=== PATIENT | female | born 1975 | race Caucasian/White ===

== ENCOUNTER 2016-10-17 15:57 | Emergency (ER) | payer OTHER ==
[2016-10-17 16:05] VITALS: TEMP 100.9
[2016-10-17] MEDS ORDERED: ACETAMINOPHEN 325 MG TAB ONE (16:07)
[2016-10-17] MEDS ORDERED: ACETAMINOPHEN 325 MG TAB PO ONE (16:10)
--- NOTE | 2016-10-17 16:36 | EDPHY ---
H & P Chief Complaint Nursing Narrative: cough, head and chest congestion, fever x 4 days Time Seen by Provider: 10/17/16 16:31 HPI/ROS: CHIEF COMPLAINT: Congestion, fever HISTORY OF PRESENT ILLNESS: Patient is a 40-year-old female who comes to the Urgent Care complaining of sinus congestion, fever and cough productive of yellow mucus. She has had the symptoms since last . No sore throat. No headache. No neck pain. she complains of sinus tenderness, no of dental pain. REVIEW OF SYSTEMS: Constitutional: denies: chills, fever, recent illness, recent injury EENTM: See HPI Respiratory: See HPI Cardiac: denies: chest pain, irregular heart rate, lightheadedness, palpitations Gastrointestinal/Abdominal: denies: abdominal pain, diarrhea, nausea, vomiting, blood streaked stools Genitourinary: denies: dysuria, frequency, hematuria, pain Musculoskeletal: denies: joint pain, muscle pain Skin: denies: lesions, rash, jaundice, bruising Neurological: denies: headache, numbness, paresthesia, tingling, dizziness, weakness Hematologic/Lymphatic: denies: blood clots, easy bleeding, easy bruising Immunologic/allergic: denies: HIV/AIDS, transplant EXAM: GENERAL: Well-appearing, well-nourished and in no acute distress. HEAD: Atraumatic, normocephalic. EYES: Pupils equal round and reactive to light, extraocular movements intact, sclera anicteric, conjunctiva are normal. ENT: Purulent effusions behind both tympanic membranes, oropharynx clear, no erythema, sinus tenderness to palpation. NECK: Normal range of motion, supple without lymphadenopathy or JVD. LUNGS: Breath sounds clear to auscultation bilaterally and equal. No wheezes rales or rhonchi. HEART: Regular rate and rhythm without murmurs, rubs or gallops. ABDOMEN: Soft, nontender, normoactive bowel sounds. No guarding, no rebound. No masses appreciated. BACK: No CVA tenderness, no spinal tenderness, step-offs or deformities EXTREMITIES: Normal range of motion, no pitting or edema. No clubbing or cyanosis. NEUROLOGICAL: Cranial nerves II through XII grossly intact. Normal speech, normal gait. 5/5 strength, normal movement in all extremities, normal sensation PSYCH: Normal mood, normal affect. SKIN: Warm, dry, normal turgor, no visible rashes or lesions. Source: Patient Exam Limitations: No limitations - Personal History LMP (Females 10-55): Extended Cycle BCP/Inj Tetanus Vaccine Date: Fall 2011 - Medical/Surgical History Hx Asthma: No Hx Chronic Respiratory Disease: No Hx Diabetes: No Hx Cardiac Disease: No Hx Renal Disease: No Hx Cirrhosis: No Hx Alcoholism: No Hx HIV/AIDS: No Hx Splenectomy or Spleen Trauma: No Other PMH: PE, bipolar disorder, undifferentiated connective disorder, factor 5 Leiden deficiency - Family History Significant Family History: No pertinent family hx - Social History Smoking Status: Never smoked Alcohol Use: Sober Drug Use: None Constitutional: Initial Vital Signs Temperature (C) 38.3 C 10/17/16 16:01 Heart Rate 89 10/17/16 16:01 Respiratory Rate 18 10/17/16 16:01 Blood Pressure 115/72 10/17/16 16:01 O2 Sat (%) 94 10/17/16 16:01 O2 Delivery Mode Room Air Allergies/Adverse Reactions: carbamazepine Allergy (Verified 11/03/14 19:40) hydromorphone HCl [From Dilaudid] Allergy (Verified 11/03/14 19:40) morphine Allergy (Verified 11/03/14 19:40) Home Medications: Medication Instructions Recorded Escitalopram Oxalate [Lexapro] 07/30/13 QUETIAPINE FUMARATE [SEROQUEL] 07/30/13 Levonorgestrel [MIRENA] 09/09/13 Pramipexole Di-HCl [Mirapex 0.125 09/09/13 mg (RX)] GABAPENTIN 10/17/16 Methotrexate 10/17/16 Plaquenil 200 mg (*) 10/17/16 Promethazine HCl/Codeine 5 ml PO Q4-6PRN PRN #90 ml 10/17/16 [Prometh-Codein 6.25-10 mg/5 ml] Medical Decision Making - Diagnostics EKG Interpretation: An EKG obtained and was read and documented in trace view. Please see trace view for full reading and report. Sinus rhythm, no sign of cardiomegaly, no diminished QRS, no ST elevation or signs of right heart strain. Imaging Results: Imaging Impressions Chest X-Ray 10/17/16 16:35 Impression: Progressive cardiac enlargement associated with pulmonary vascular congestion and prominence of the vascular pedicle, exclude cardiogenic etiology. Exam results discussed with Dr. Patrice Jean at 4:50 PM.. Chest/Thorax CTA 10/17/16 18:01 Impression: 1. No evidence of pulmonary embolic disease. 2. Borderline cardiac enlargement, with no secondary findings to suggest congestive heart failure. 3. See above report for additional findings. Results called and discussed with Patrice Jean M.D., on October 17, 2016 at 1846 hours. Imaging: Discussed imaging studies w/ call manager Radiologist ED Course/Re-evaluation: The patient is flu positive. This is most likely the cause of her symptoms however she has an enlarged heart and cardiovascular congestion on her chest x- ray. She does have a history of PE but denies any pleuritic chest pain or chest pain at all today. She states that it was provoked At that time by a mild factor 5 Leiden deficiency as well as a recent back injury and the fact that she was on control pills. She is not hypoxic. She finished it taking anticoagulants 2011. 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 She states that her dad did have a bicuspid aortic valve. She reports history of murmur although I do not hear one today. She does report progressive dyspnea over the last year even with very mild exertion. She also states that she always has mild edema in her lower extremities. The 5:25 p.m. I discussed the case with Dr. Annie Turner from Cardiology. She agrees with adding on troponin and D-dimer and EKG. If these are unremarkable treat the patient for the flu a and follow up in the Cardiology Clinic for further workup for her more chronic and mild dyspnea on exertion and cardiomegaly seen on chest x-ray. This is unlikely to represent an acute emergent valvular abnormality or myocarditis or pericardial effusion any of any significance if her lab work and EKG are unremarkable. 6:[address] we discussed the CT results. Patient and are relieved. I will treat her cough syrup she requests. We discussed the positives and negatives of Tamiflu. Will not start her at this time. She has been sick for 4 -5 days. I will have her follow up with Cardiology for further cardiac testing in the outpatient setting. We discussed indications for returning to the emergency department sooner. Differential Diagnosis: Partial list of the Differential diagnosis considered include but were not limited to; influenza, sinusitis, bronchitis, pneumonia, upper respiratory tract infection, valvular disease, pericardial effusion, PE, pulmonary hypertension and although unlikely based on the history and physical exam, I also considered PE, heart failure, acute coronary disease. I discussed these differential diagnoses and the plan with the patient as well as the usual and expected course. The patient understands that the diagnosis is provisional and that in medicine we are not always correct and that further workup is often warranted. Usual and customary warnings were given. All of the patient's questions were answered. The patient was instructed to return to the emergency department should the symptoms at all worsen or return, otherwise to followup with the physician as we discussed. - Data Points Laboratory Results: Laboratory Results 10/17/16 17:21 10/17/16 17:21 10/17/16 10/17/16 10/17/16 17:21 17:21 17:21 WBC RBC Hgb Hct MCV MCH MCHC RDW Plt Count MPV Neut % (Auto) Lymph % (Auto) Charlton % (Auto) Eos % (Auto) Baso % (Auto) Nucleat RBC Rel Count Absolute Neuts (auto) Absolute Lymphs (auto) Absolute Monos (auto) Absolute Eos (auto) Absolute Basos (auto) Absolute Nucleated RBC Immature Gran % Immature Gran # PT 13.1 SEC SEC (12.0-15.0) INR 1.02 (0.83-1.16) APTT 25.2 SEC SEC (23.0-38.0) D-Dimer 0.81 ug/mLFEU H ug/mLFEU (0.00-0.50) Sodium 136 mEq/L mEq/L (134-144) Potassium 3.9 mEq/L mEq/L (3.5-5.2) Chloride 100 mEq/L mEq/L (97-110) Carbon Dioxide 22 mEq/l mEq/l (22-31) Anion Gap 14 mEq/L mEq/L (8-16) BUN 12 mg/dL mg/dL (7-23) Creatinine 0.8 mg/dL mg/dL (0.6-1.0) Estimated GFR > 60 Glucose 94 mg/dL mg/dL (70-100) Calcium 8.3 mg/dL L mg/dL (8.5-10.4) Troponin I < 0.012 ng/mL ng/mL (0-0.034) NT-Pro-B Natriuret Pep 49 pg/mL pg/mL (0-125) Beta HCG, Qual NEGATIVE Influenza Typ A,B (DFA) 10/17/16 10/17/16 17:21 16:42 WBC 4.43 10^3/uL 10^3/uL (3.80-9.50) RBC 3.89 10^6/uL L 10^6/uL (4.18-5.33) Hgb 13.0 g/dL g/dL (12.6-16.3) Hct 35.9 % L % (38.0-47.0) MCV 92.3 fL fL (81.5-99.8) MCH 33.4 pg pg (27.9-34.1) MCHC 36.2 g/dL g/dL (32.4-36.7) RDW 12.8 % % (11.5-15.2) Plt Count 163 10^3/uL 10^3/uL (150-400) MPV 9.3 fL fL (8.7-11.7) Neut % (Auto) 70.5 % % (39.3-74.2) Lymph % (Auto) 17.6 % % (15.0-45.0) Charlton % (Auto) 10.4 % % (4.5-13.0) Eos % (Auto) 1.1 % % (0.6-7.6) Baso % (Auto) 0.2 % L % (0.3-1.7) Nucleat RBC Rel Count 0.0 % % (0.0-0.2) Absolute Neuts (auto) 3.12 10^3/uL 10^3/uL (1.70-6.50) Absolute Lymphs (auto) 0.78 10^3/uL L 10^3/uL (1.00-3.00) Absolute Monos (auto) 0.46 10^3/uL 10^3/uL (0.30-0.80) Absolute Eos (auto) 0.05 10^3/uL 10^3/uL (0.03-0.40) Absolute Basos (auto) 0.01 10^3/uL L 10^3/uL (0.02-0.10) Absolute Nucleated RBC 0.00 10^3/uL 10^3/uL (0-0.01) Immature Gran % 0.2 % % (0.0-1.1) Immature Gran # 0.01 10^3/uL 10^3/uL (0.00-0.10) PT INR APTT D-Dimer Sodium Potassium Chloride Carbon Dioxide Anion Gap BUN Creatinine Estimated GFR Glucose Calcium Troponin I NT-Pro-B Natriuret Pep Beta HCG, Qual Influenza Typ A,B (DFA) POSITIVE FOR FLU B H (NEGATIVE) Medications Given: Discontinued Medications Acetaminophen (Tylenol) 975 mg PO EDNOW ONE Stop: 10/17/16 16:11 Last Admin: 10/17/16 16:10 Dose: 975 mg Departure - Departure Disposition: Home, Routine, Self-Care Clinical Impression: Influenza B Condition: Fair Instructions: Influenza Vaccine (ED) Referrals: Johnie Menjivar MD [Primary Care Provider] - As per Instructions Prescriptions: Promethazine HCl/Codeine [Prometh-Codein 6.25-10 mg/5 ml] 5 ml PO Q4-6PRN PRN # 90 ml PRN Reason: Cough, Moderate
--- NOTE | 2016-10-17 17:16 | CPEKG ---
Heart Rate: 83 RR Interval: 723 P-R Interval: 128 QRSD Interval: 94 QT Interval: 384 QTC Interval: 452 P Alva: 15 QRS Alva: 48 T Wave Alva: 35 EKG Severity - NORMAL ECG - EKG Impression: SINUS RHYTHM EKG Impression: Unchanged from previous Electronically Signed By: Patrice Jean 17-Oct-2016 17:27:59
[2016-10-17 17:29] LABS: % IMMATURE GRANULYOCYTES 0.2 % (0.0-1.1); ABSOLUTE IMMATURE GRANULOCYTES 0.01 10^3/uL (0.00-0.10); ADD DIFF? NO; ADD MORPH? NO; ADD SCAN? NO; ATYPICAL LYMPHOCYTE FLAG 30 (0-99); FRAGMENT RBC FLAG 0 (0-99); HEMATOCRIT 35.9 % (38.0-47.0); LEFT SHIFT FLG 0 (0-99); LIPEMIA HEMOLYSIS FLAG 90 (0-99); MEAN CELL HEMOGLOBIN 33.4 pg (27.9-34.1); MEAN CELL HEMOGLOBIN CONCENTR. 36.2 g/dL (32.4-36.7); MEAN CELL VOLUME 92.3 fL (81.5-99.8); MEAN PLATELET VOLUME 9.3 fL (8.7-11.7); PLATELET CLUMPS FLAG 0 (0-99); PLATELET COUNT 163 10^3/uL (150-400); RED BLOOD CELL COUNT 3.89 10^6/uL (4.18-5.33); RED CELL DISTRIBUTION WIDTH 12.8 % (11.5-15.2)
[2016-10-17 17:43] LABS: ANION GAP 14 mEq/L (8-16); CALCIUM 8.3 mg/dL (8.5-10.4); CARBON DIOXIDE 22 mEq/l (22-31); CHLORIDE 100 mEq/L (97-110); CREATININE 0.8 mg/dL (0.6-1.0); GLOMERULAR FILTRATION RATE > 60; GLUCOSE 94 mg/dL (70-100); POTASSIUM 3.9 mEq/L (3.5-5.2); SODIUM 136 mEq/L (134-144)
[2016-10-17 17:52] LABS: INR 1.02 (0.83-1.16); PROTIME(PATIENT) 13.1 SEC (12.0-15.0)
[2016-10-17 17:53] LABS: APTT 25.2 SEC (23.0-38.0)
[2016-10-17 17:56] LABS: TROPONIN I < 0.012 ng/mL (0-0.034)
[2016-10-17] MEDS ORDERED: IOPAMIDOL (ISOVUE 370) 100 ML BTL IV ONE (18:09)
[2016-10-17 19:37] VITALS: BP 101/72; PULSE 80; RESP 14; O2SAT 96
== END 2016-10-17 19:10 | disposition home or self-care (01) ==
LOC: CED 15:57
DX: J10.1 Influenza due to other identified influenza virus with other respiratory manifestations (principal); D68.2 Hereditary deficiency of other clotting factors; Z86.711 Personal history of pulmonary embolism
CPT/HCPCS: 71020-PO; 71275-PO; 80048-PO; 83880-PO; 84484-PO; 84703-PO; 85025-PO; 85378-PO; 85610-PO; 85730-PO; 87400-PO; 93010-PO; 99215-PO; G0463-PO; Q9967

== ENCOUNTER → 2016-11-07 | Outpatient (CLI) | payer OTHER | LOC: FIMAGING 12:59 | PROVIDERS: ATTEND Physician Assistant Medical | DX: R60.9 Edema, unspecified (principal); R07.9 Chest pain, unspecified; I42.9 Cardiomyopathy, unspecified ==

== ENCOUNTER → 2016-11-16 | Outpatient (CLI) | payer OTHER | LOC: FIMAGING 11:06 | PROVIDERS: ATTEND Physician Assistant | DX: R05 Cough (principal) ==

== ENCOUNTER 2016-11-30 09:42 | Day surgery (SDC) | payer OTHER ==
[2016-11-30] MEDS ORDERED: diphenhydrAMINE 25 MG CAP PO ONE ×2 (09:44→10:00)
[2016-11-30] MEDS ORDERED: DIAZEPAM 5 MG TAB PO ONE (09:44)
[2016-11-30] MEDS ORDERED: FAMOTIDINE 20 MG TAB PO ONE (09:44)
[2016-11-30] MEDS ORDERED: NS 1,000 ML IV ONE (09:44)
[2016-11-30] MEDS ORDERED: LIDOCAINE 1% 300 MG/30 ML SDV ONE ×2 (09:44→13:43)
[2016-11-30] MEDS ORDERED: ASPIRIN EC 325 MG TAB PO ONE ×2 (09:44→10:01)
[2016-11-30] MEDS ORDERED: MIDAZOLAM 2 MG/2 ML VIAL ONE ×3 (09:45→13:52)
[2016-11-30] MEDS ORDERED: VERAPAMIL 5 MG/2 ML VIAL ONE (09:45)
[2016-11-30] MEDS ORDERED: HEPARIN 10,000 UNIT/10 ML MDV ONE (09:45)
[2016-11-30] MEDS ORDERED: fentaNYL 100 MCG/2 ML INJ ONE ×2 (09:45→13:39)
[2016-11-30] MEDS ORDERED: IOPAMIDOL (ISOVUE-370) 150 ML BTL IV ONE (09:45)
--- NOTE | 2016-11-30 09:58 | CPEKG ---
Heart Rate: 80 RR Interval: 750 P-R Interval: 136 QRSD Interval: 100 QT Interval: 404 QTC Interval: 466 P [place]: 50 QRS [place]: 65 T Wave [place]: 25 EKG Severity - BORDERLINE ECG - EKG Impression: SINUS RHYTHM EKG Impression: BORDERLINE T WAVE ABNORMALITIES Electronically Signed By: Husam Sheppard 30-Nov-2016 10:22:34
[2016-11-30] MEDS ORDERED: DIAZEPAM 5 MG TAB ONE (10:01)
[2016-11-30] MEDS ORDERED: FAMOTIDINE 20 MG TAB ONE (10:01)
[2016-11-30 10:19] LABS: % IMMATURE GRANULYOCYTES 0.3 % (0.0-1.1); ABSOLUTE IMMATURE GRANULOCYTES 0.01 10^3/uL (0.00-0.10); ADD DIFF? NO; ADD MORPH? NO; ADD SCAN? NO; ATYPICAL LYMPHOCYTE FLAG 30 (0-99); FRAGMENT RBC FLAG 0 (0-99); HEMATOCRIT 37.7 % (38.0-47.0); LEFT SHIFT FLG 0 (0-99); LIPEMIA HEMOLYSIS FLAG 90 (0-99); MEAN CELL HEMOGLOBIN 32.5 pg (27.9-34.1); MEAN CELL HEMOGLOBIN CONCENTR. 34.5 g/dL (32.4-36.7); MEAN CELL VOLUME 94.3 fL (81.5-99.8); MEAN PLATELET VOLUME 9.2 fL (8.7-11.7); PLATELET CLUMPS FLAG 0 (0-99); PLATELET COUNT 199 10^3/uL (150-400)
[2016-11-30 10:29] LABS: ANION GAP 10 mEq/L (8-16); CALCIUM 8.8 mg/dL (8.5-10.4); CARBON DIOXIDE 25 mEq/l (22-31); CHLORIDE 105 mEq/L (97-110); CHOLESTEROL 161 mg/dL (140-200); CHOLESTEROL/HDL RATIO 2.88 RATIO (1.00-4.44); CREATININE 0.9 mg/dL (0.6-1.0); GLOMERULAR FILTRATION RATE > 60; GLUCOSE 90 mg/dL (70-100); HIGH DENSITY LIPOPROTEIN 56 mg/dL (40-95); LDL/HDL RATIO 1.54 RATIO (1.00-3.22); LOW DENSITY LIPOPROTEIN 86 mg/dL (70-100); MAGNESIUM 2.3 mg/dL (1.6-2.3); NON-HIGH DENSITY LIPOPROTEIN 105 mg/dL (90-129); POTASSIUM 3.7 mEq/L (3.5-5.2); SODIUM 140 mEq/L (134-144); TRIGLYCERIDE 99 mg/dL (35-135); VERY LOW DENSITY LIPOPROTEINS 19 mg/dL (8-25)
[2016-11-30 10:32] LABS: INR 1.04 (0.83-1.16); PROTIME(PATIENT) 13.5 SEC (12.0-15.0)
--- NOTE | 2016-11-30 15:04 | PDDXCAT ---
Diagnostic Cath Note - . Date: 11/30/16 Data Warehousing Architect: Jerome Indication: other (Dyspnea, LE edema, and abnormal ETT.) - Procedure Access: right groin Procedure: left heart catheterization, coronary angiography, left ventriculogram , right heart catheterization - Materials Left Heart Cath size: 6F Left Heart Cath materials: standard multipack (JL4, JR4, pigtail) Right Heart Cath size: 7F Right Heart Cath materials: PWP catheter - Findings-Left Heart Catheterization LM: Angiographically normal. LAD: Angiographically normal. LCX: Angiographically normal. RCA: Angiographically normal. EDP: 26 mmHg LVEF: 65% Wall motion: Normal. - Findings-Right Heart Catheterization RA: 14 mmHg RV: 38/18 mmhg PA: 38/20/26 mmHg O2 sat 77.8% PAOP: 18 mmHg AO: 107/63/77 mmHg O2 sat 96.1% CO: 7.66 L/min CI: 3.86 L/min/sq mtr Complications: None Estimated blood loss: <50ml Closure method: Angioseal Assessment: 1) Normal LV systolic function. 2) Normal coronary arteries. 3) Borderline RV and PA systolic pressures. 4) Mild elevation/equalization of RA, RVEDP, PCWP, and LVEDP. Patient Problems: Problems Problem Status Onset Drowsy Active Low back pain Acute
[2016-11-30] MEDS ORDERED: ATROPINE SULFATE 1 MG/10 ML SYR IVP PRN (15:43)
[2016-11-30] MEDS ORDERED: HYDROCODONE/APAP 5/325 TAB PO PRN (15:43)
[2016-11-30] MEDS ORDERED: OXYCODONE/APAP 5/325 TAB PO PRN (15:43)
[2016-11-30] MEDS ORDERED: ONDANSETRON 4 MG/2 ML VIAL IVP PRN (15:43)
[2016-11-30] MEDS ORDERED: NITROGLYCERIN 0.4 MG BTL SL PRN (15:43)
[2016-11-30] MEDS ORDERED: ACETAMINOPHEN 325 MG TAB PO ONE (16:15)
[2016-11-30 18:58] VITALS: BP 101/55; RESP 17; O2SAT 94
== END 2016-11-30 19:00 | disposition home or self-care (01) ==
LOC: FCATH 09:42
PROVIDERS: ATTEND Internal Medicine Interventional Cardiology
PROC: B2111ZZ Fluoroscopy of Multiple Coronary Arteries using Low Osmolar Contrast (ICD-10-PCS; principal; 2016-11-30)
PROC: 4A023N8 Measurement of Cardiac Sampling and Pressure, Bilateral, Percutaneous Approach (ICD-10-PCS; principal; 2016-11-30)
PROC: B2151ZZ Fluoroscopy of Left Heart using Low Osmolar Contrast (ICD-10-PCS; principal; 2016-11-30)
DX: R07.9 Chest pain, unspecified (principal); R06.09 Other forms of dyspnea; Z86.711 Personal history of pulmonary embolism; F31.9 Bipolar disorder, unspecified; L94.9 Localized connective tissue disorder, unspecified; G62.9 Polyneuropathy, unspecified
CPT/HCPCS: C1760; J1644; J2250; J3010; Q9967

== ENCOUNTER → 2016-12-08 | Outpatient (CLI) | payer OTHER | LOC: FIMAGING 17:08 | PROVIDERS: ATTEND Internal Medicine Cardiovascular Disease | DX: R07.9 Chest pain, unspecified (principal); R10.30 Lower abdominal pain, unspecified; S30.1XXA Contusion of abdominal wall, initial encounter ==

== ENCOUNTER 2017-04-15 19:09 | Emergency (ER) | payer OTHER ==
--- NOTE | 2017-04-15 20:41 | EDPHY ---
H & P Time Seen by Provider: 04/15/17 19:28 HPI/ROS: CHIEF COMPLAINT: Left rib and right arm pain after fall HISTORY OF PRESENT ILLNESS: 41-year-old female presents to the emergency department by private vehicle after she fell out of her make shift [place] at home. She does not think that she hit her head or lost consciousness. Denies neck or back pain. Having pain in her left anterior rib and right arm. The incident happened just prior to arrival. No abdominal pain. No chest pain or difficulty breathing. No injury to her lower extremities. She is right-hand dominant. REVIEW OF SYSTEMS: Constitutional: No fever, no chills. Eyes: No double or blurry vision. ENT: No sore throat. Respiratory: No cough, no shortness of breath. Cardiac: No chest pain. Gastrointestinal: No abdominal pain, vomiting or diarrhea. Genitourinary: No dysuria. Musculoskeletal: No neck or back pain. Skin: No rashes. Neurological: No headache. Past Medical/Surgical History: Bipolar, factor 5 Leiden Social History: , works in [employer] Smoking Status: Never smoked Physical Exam: General Appearance: Alert, no distress. No visible signs of trauma to her head. She is mentating normally and answering questions appropriately. Eyes: Pupils equal and round. Extraocular motions are all intact. ENT: Mouth: Mucous membranes moist. Respiratory: No wheezing, rhonchi, or rales, lungs are clear to auscultation. Patient has reproducible pain with palpation to the left anterior aspect of her chest wall in the midclavicular line extend into the mid axillary line at the level of the 8th or 9th rib area. No palpable crepitus or other bony abnormality. No palpable crepitus or other bony abnormality. Cardiovascular: Regular rate and rhythm. Gastrointestinal: Abdomen is soft and nontender, no masses, no rebound or guarding, bowel sounds normal. Specifically no tenderness with palpation in the left upper quadrant. No CVA tenderness bilaterally. Neurological: Alert and oriented x 3, cranial nerves II through XII grossly intact Skin: Warm and dry, no rashes. Musculoskeletal: Nontender to palpate along the cervical, thoracic or lumbar spine. Neck is supple. Extremities: Full range of motion and no peripheral edema. Pain with palpation to the left humerus. There is no bruising or swelling noted. Full range of motion of her left in her right upper extremities as well as her lower extremities bilaterally. Psychiatric: Patient is oriented X 3, there is no agitation. Constitutional: Initial Vital Signs Temperature (C) 36.5 C 04/15/17 19:10 Heart Rate 85 04/15/17 19:10 Respiratory Rate 18 04/15/17 19:10 Blood Pressure 120/79 04/15/17 19:10 O2 Sat (%) 97 04/15/17 19:10 O2 Delivery Mode Room Air Allergies/Adverse Reactions: carbamazepine Allergy (Verified 11/03/14 19:40) hydromorphone HCl [From Dilaudid] Allergy (Verified 11/03/14 19:40) morphine Allergy (Verified 11/03/14 19:40) Home Medications: Medication Instructions Recorded Levonorgestrel [MIRENA] 1 each VG [id number] 09/09/13 Gabapentin [Neurontin 400 MG (*)] 800 mg PO HS 10/17/16 Hydroxychloroquine Sulfate 200 mg PO BID 10/17/16 [Plaquenil 200 mg (*)] Methotrexate Sodium [Rheumatrex] 15 mg PO TH 10/17/16 Cyanocobalamin [Vitamin B12 (*)] 1,000 mcg PO DAILY 11/30/16 Escitalopram Oxalate [Lexapro] 20 mg PO DAILY 11/30/16 Folic Acid [Folic Acid 1 MG (*)] 1 mg PO DAILY 11/30/16 Melatonin [Melatonin 3 MG (*)] 3 mg PO HS 11/30/16 Pramipexole Di-HCl [Mirapex 1 mg 2 mg PO BID 11/30/16 (*)] QUEtiapine FUMARATE [Seroquel 100 100 mg PO HS 11/30/16 mg (*)] Quetiapine Fumarate [Seroquel Xr] 300 mg PO HS 11/30/16 Valacyclovir HCl 04/15/17 Medical Decision Making - Diagnostics Imaging: I viewed and interpreted images myself ED Course/Re-evaluation: 41-year-old female presents to the emergency department after a fall. Chest and rib x-ray reveal no evidence of obvious fracture or pneumothorax or puncture wound. X-rays of the right humerus reveal no fractures. Patient does not have any abdominal tenderness. She felt comfortable being discharged home. She was given orthopedic referral. I encouraged her return if she felt short of breath, increasing pain or any other concerns. Differential Diagnosis: Including but not limited to fracture, dislocation, contusion, sprain Departure - Departure Disposition: Home, Routine, Self-Care Clinical Impression: Contusion of rib on right side Qualifiers: Encounter type: initial encounter Qualified Code(s): S20.211A - Contusion of right front wall of thorax, initial encounter Contusion of right arm Qualifiers: Encounter type: initial encounter Qualified Code(s): S40.021A - Contusion of right upper arm, initial encounter Condition: Good Instructions: Contusion in Adults (ED), Rib Contusion (ED) Additional Instructions: Ibuprofen 600mg every 8 hours for pain as directed. Return if you feel short of breath or if you feel worse in anyway. Referrals: Johnie Menjivar MD [Primary Care Provider] - 1-2 days without fail Fede Grigsby MD [Medical Doctor] - 2-3 days, if not improved (Orthopedic surgeon on-call)
[2017-04-15 20:59] VITALS: BP 128/69; PULSE 70; RESP 20; TEMP 98.1; O2SAT 96
== END 2017-04-15 20:59 | disposition home or self-care (01) ==
DX: S20.211A Contusion of right front wall of thorax, initial encounter (principal); S40.021A Contusion of right upper arm, initial encounter; W18.39XA Other fall on same level, initial encounter; Y92.009 Unspecified place in unspecified non-institutional (private) residence as the place of occurrence of the external cause; Y99.8 Other external cause status

== ENCOUNTER 2017-09-01 19:36 | Emergency (ER) | payer OTHER ==
[2017-09-01 19:44] VITALS: TEMP 99.1
[2017-09-01] MEDS ORDERED: NS 1,000 ML IV ONE (20:03)
[2017-09-01] MEDS ORDERED: LORazepam 2 MG/ML INJ IVP ONE (20:03)
--- NOTE | 2017-09-01 20:16 | CPEKG ---
Heart Rate: 78 RR Interval: 769 P-R Interval: 132 QRSD Interval: 100 QT Interval: 400 QTC Interval: 456 P [place]: 43 QRS [place]: 50 T Wave [place]: -2 EKG Severity - NORMAL ECG - EKG Impression: SINUS RHYTHM Electronically Signed By: Patrice Jean 01-Sep-2017 20:17:17
--- NOTE | 2017-09-01 20:16 | EDPHY ---
H & P Stated Complaint: Shaking, "[place] toxicity" Time Seen by Provider: 09/01/17 19:47 HPI/ROS: CHIEF COMPLAINT: Concern for lithium toxicity HISTORY OF PRESENT ILLNESS: The patient is a 41-year-old female with a history of bipolar who was previously on Lexapro and Seroquel. About 2 months ago she began lithium as well. 4 days ago her dose was changed from 1200 mg per day to 1500 mg per day. This was done because her lithium level was low. Today she had it checked and it was 0.8 which is also in the normal range. She states however that she has began to feel tremors and restlessness. She called her on- call psychiatrist [facility] recommended she come to the ER to get checked out. She has not had a fever. No chest pain teared no hypertension, no diaphoresis. She has had slight nausea but no vomiting or diarrhea. No headache. No confusion or disorientation. is here with her and is concerned. She states that the tremors involve her upper extremities and face and make it difficult when she tries to drink water. REVIEW OF SYSTEMS: Constitutional: denies: chills, fever, recent illness, recent injury EENTM: denies: blurred vision, double vision, nose congestion Respiratory: denies: cough, shortness of breath Cardiac: denies: chest pain, irregular heart rate, lightheadedness, palpitations Gastrointestinal/Abdominal: denies: abdominal pain, diarrhea, nausea, vomiting, blood streaked stools Genitourinary: denies: dysuria, frequency, hematuria, pain Musculoskeletal: denies: joint pain, muscle pain Skin: denies: lesions, rash, jaundice, bruising Neurological: denies: headache, numbness, paresthesia, tingling, dizziness, weakness Hematologic/Lymphatic: denies: blood clots, easy bleeding, easy bruising Immunologic/allergic: denies: HIV/AIDS, transplant EXAM: GENERAL: Well-appearing, well-nourished and in no acute distress. HEAD: Atraumatic, normocephalic. EYES: Pupils equal round and reactive to light, extraocular movements intact, sclera anicteric, conjunctiva are normal. ENT: TMs normal, nares patent, oropharynx clear without exudates. Moist mucous membranes. Some fasciculation or twitching of tongue when she protrudes it. None when she is talking. NECK: Normal range of motion, supple without lymphadenopathy or JVD. LUNGS: Breath sounds clear to auscultation bilaterally and equal. No wheezes rales or rhonchi. HEART: Regular rate and rhythm without murmurs, rubs or gallops. ABDOMEN: Soft, nontender, normoactive bowel sounds. No guarding, no rebound. No masses appreciated. BACK: No CVA tenderness, no spinal tenderness, step-offs or deformities EXTREMITIES: Mild intention tremors of hands, not legs. Normal range of motion , no pitting or edema. No clubbing or cyanosis. NEUROLOGICAL: Cranial nerves II through XII grossly intact. Normal speech, normal gait. 5/5 strength, very slight shaking with intention but not at rest, normal sensation, normal reflexes PSYCH: Normal mood, normal affect. SKIN: Warm, dry, normal turgor, no visible rashes or lesions. Source: Patient - Personal History LMP (Females 10-55): IUD In Place Current Tetanus Diphtheria and Acellular Pertussis (TDAP): Yes Tetanus Vaccine Date: Fall 2011 - Medical/Surgical History Hx Asthma: No Hx Chronic Respiratory Disease: No Hx Diabetes: No Hx Cardiac Disease: No Hx Renal Disease: No Hx Cirrhosis: No Hx Alcoholism: No Hx HIV/AIDS: No Hx Splenectomy or Spleen Trauma: No Other PMH: PE, bipolar disorder, undifferentiated connective disorder, factor 5 Leiden deficiency. - Family History Significant Family History: No pertinent family hx - Social History Smoking Status: Never smoked Alcohol Use: Sober Constitutional: Initial Vital Signs Temperature (C) 37.3 C 09/01/17 19:43 Heart Rate 88 09/01/17 19:43 Respiratory Rate 20 09/01/17 19:43 Blood Pressure 150/88 H 09/01/17 19:43 O2 Sat (%) 98 09/01/17 19:43 O2 Delivery Mode Room Air Allergies/Adverse Reactions: carbamazepine Allergy (Verified 09/01/17 19:40) hydromorphone HCl [From Dilaudid] Allergy (Verified 09/01/17 19:40) morphine Allergy (Verified 09/01/17 19:40) Home Medications: Medication Instructions Recorded Levonorgestrel [MIRENA] 1 each VG [id number] 09/09/13 Gabapentin [Neurontin 400 MG (*)] 800 mg PO HS 10/17/16 Hydroxychloroquine Sulfate 200 mg PO BID 10/17/16 [Plaquenil 200 mg (*)] Methotrexate Sodium [Rheumatrex] 15 mg PO TH 10/17/16 Cyanocobalamin [Vitamin B12 (*)] 1,000 mcg PO DAILY 11/30/16 Escitalopram Oxalate [Lexapro] 20 mg PO DAILY 11/30/16 Folic Acid [Folic Acid 1 MG (*)] 1 mg PO DAILY 11/30/16 Melatonin [Melatonin 3 MG (*)] 3 mg PO HS 11/30/16 Pramipexole Di-HCl [Mirapex 1 mg 2 mg PO BID 11/30/16 (*)] Quetiapine Fumarate [Seroquel Xr] 300 mg PO HS 11/30/16 Valacyclovir HCl 04/15/17 Lexapro 20 mg 09/01/17 [place] Carbonate 1,500 mg 09/01/17 Medical Decision Making - Diagnostics EKG Interpretation: An EKG obtained and was read and documented in trace view. Please see trace view for full reading and report. , sinus rhythm, no QT prolongation. ED Course/Re-evaluation: Her lithium level is not elevated. I will repeated. It was 0.8 earlier today. She does not have any muscle weakness. No chest pain, no tinnitus, no aphasia , no visual changes, no seizures or hypertension, no Step-Down Unit per or incontinence. No lethargy. She does not have nystagmus or hyperreflexia. No cogwheel rigidity. Also we discussed that [place] and Lexapro together can cause serotonin syndrome however to She has normal reflexes. No myoclonus. No hyperreflexia. No diaphoresis. No tachycardia. No hypertension. No altered mental status. No agitation. Currently the patient is not having any objective symptoms other than tremors in her hands and tongue. This is unusual. She states that she has not had anxiety like this before. Treat her with fluids and Ativan and recheck her chemistries and lithium level. I will also obtain an EKG. 9:20 p.m. the patient's lithium level 0.7. She is not having other symptoms consistent with lithium toxicity or serotonin syndrome. She is mentating normally. She does not have any tremor rest but does have a slight intention tremor. It is most notice when she tries to drink water. She has been hydrated. She states that she does feel somewhat better after Ativan. I will try to contact her psychiatrist on-call but otherwise a think she would be safe to discharge and follow up the next day or to. Differential Diagnosis: Partial list of the Differential diagnosis considered include but were not limited to; anxiety, medication reaction, toxicity, serotonin syndrome and although unlikely based on the history and physical exam, I also considered infection, CVA, Parkinson's. I discussed these differential diagnoses and the plan with the patient as well as the usual and expected course. The patient understands that the diagnosis is provisional and that in medicine we are not always correct and that further workup is often warranted. Usual and customary warnings were given. All of the patient's questions were answered. The patient was instructed to return to the emergency department should the symptoms at all worsen or return, otherwise to followup with the physician as we discussed. - Data Points Laboratory Results: Laboratory Results 09/01/17 20:05 09/01/17 20:05 Medications Given: Discontinued Medications Sodium Chloride (Ns) 1,000 mls @ 0 mls/hr IV EDNOW ONE; Wide Open PRN Reason: Protocol Stop: 09/01/17 20:04 Last Admin: 09/01/17 20:25 Dose: 1,000 mls Lorazepam (Ativan Injection) 1 mg IVP EDNOW ONE Stop: 09/01/17 20:04 Last Admin: 09/01/17 20:26 Dose: 1 mg Departure - Departure Disposition: Home, Routine, Self-Care Clinical Impression: Tremor Condition: Fair Instructions: Tremors (ED) Referrals: Johnie Menjivar MD [Primary Care Provider] - As per Instructions Silvia Richardson MD [Non Staff Provider ()] - 2-3 days, call for appt.
[2017-09-01 20:21] LABS: PLATELET COUNT 214 10^3/uL (150-400)
[2017-09-01 21:58] VITALS: BP 145/87; PULSE 78; RESP 18; O2SAT 95
== END 2017-09-01 21:57 | disposition home or self-care (01) ==
DX: R25.1 Tremor, unspecified (principal); E86.9 Volume depletion, unspecified
CPT/HCPCS: 80305; 96374; G0480; J2060

== ENCOUNTER 2017-11-06 15:59 | Observation (INO) | payer OTHER ==
[~2017-11-06 15:59] MED LIST: IOPAMIDOL (ISOVUE 370) 100 ML BTL IV ONE
--- NOTE | 2017-11-06 16:39 | EDPHY ---
H & P Stated Complaint: sob/r cp/had d dimer/ct angio chest/ + PE Source: Patient, Family, Old records Exam Limitations: No limitations - Personal History LMP (Females 10-55): IUD In Place Current Tetanus/Diphtheria Vaccine: Yes Tetanus Vaccine Date: Fall 2011 - Medical/Surgical History Hx Asthma: No Hx Chronic Respiratory Disease: No Hx Diabetes: No Hx Cardiac Disease: No Hx Renal Disease: No Hx Cirrhosis: No Hx Alcoholism: No Hx HIV/AIDS: No Hx Splenectomy or Spleen Trauma: No Other PMH: PE, bipolar disorder, undifferentiated connective disorder, factor 5 Leiden deficiency. - Social History Smoking Status: Never smoked Time Seen by Provider: 11/06/17 16:34 HPI/ROS: HPI: This is a 41-year-old female who presents with Chief Complaint: Sent by primary care office for CTA chest showing pulmonary embolism Location: Right lateral and anterior chest Quality: Pain Duration: Since Monday Signs and Symptoms: no shortness of breath at rest, no shortness of breath on exertion, + mild nonproductive cough, no chest pain, no palpitations, no lower extremity edema, no wheezing, no orthopnea, no paroxysmal nocturnal dyspnea, no fever, no injury/trauma, no hemoptysis, no carpal pedal spasms Timing: Acute, stable Severity: [id number] Context: Patient has a history of bipolar disorder, chronic pain, bilateral pulmonary embolism diagnosed in 2010 who was admitted and started on Lovenox bridge with transition to Coumadin until therapeutic. She was on Coumadin for a total of 6 months. Prior to being anticoagulated, an anticoagulation panel was sent and per patient she was shown to have "mild" factor 5 Leiden deficiency. After completing her 6 months of Coumadin, she was not on any aspirin or chronic anticoagulation. She had chronic D-dimers ordered by her primary care provider periodically. On September 07, 2016, she had a left lower extremity ultrasound that was negative for DVT. During her hospitalization in 2010 on 07/02/2010 she had bilateral lower extremity ultrasounds that were negative for DVT. Her risk factors at that time of PE were recent back surgery , sedentary lifestyle, oral control pills. She reports that on Monday she started to experience intermittent, nonradiating, right anterior and lateral right chest discomfort accompanied with nonproductive cough. She denies any fever/shortness of breath/wheezing/bilateral lower extremity edema. She has no underlying lung disease. reports that they have a blood pressure cuff and oximeter at home and vital signs have remained stable. Her chest discomfort was transiently relieved with ibuprofen so when they called her primary care provider on Monday, they decided to wait over the weekend to see whether she improved or not. Patient reports that this morning she feels like the pain has increased. Pain is not affected by positions. Patient reports that she suffers from depression and has been very sedentary recently. Modifying Factors: Ibuprofen transient relief Comment: CTA of the chest shows bilateral subsegmental pulmonary artery thromboemboli, with the greatest degree of involvement of the right lower lobe. There is a small right pleural effusion, and at the right costophrenic angle there is some ground-glass attenuation infiltrate which could represent a pneumonia, contusion, or pulmonary infarction. ROS: see HPI Constitutional: No fever, no chills, no weight loss Eyes: No blurred vision Respiratory: No shortness of breath, no cough Cardiovascular: No chest pain, no palpitations, no lower extremity edema Gastrointestinal: No nausea, no vomiting, no diarrhea Genitourinary: No dysuria Extremities: No myalgias Neurologic: No weakness, no numbness Skin: No rashes Hematologic: No bruising, no bleeding MEDICAL/SURGICAL/SOCIAL HISTORY: Medical history: PE, bipolar disorder, undifferentiated connective disorder, factor 5 Leiden deficiency. Surgical history: Denies Social history: . CONSTITUTIONAL: Nontoxic-appearing, well-developed and well-nourished adult white female, father at bedside, awake and alert, no obvious distress HEENT: Atraumatic and normocephalic, PERRL, EOMI. Nares patent; no rhinorrhea; no nasal mucosal edema. Tympanic membranes clear. Oropharynx clear, no exudate and moist pink mucosa. Airway patent. No lymphadenopathy. No meningismus. Cardiovascular: Normal S1/S2, regular rate, regular rhythm, without murmur rub or gallop. PULMONARY/CHEST: Symmetrical and nontender. Clear to auscultation bilaterally. Good air movement. No accessory muscle usage. ABDOMEN: Soft, nondistended, nontender, no rebound, no guarding, no peritoneal signs, no masses or organomegaly. No CVAT. EXTREMITIES: 2/2 pulses, strength 5/5, no deformities, no clubbing, no cyanosis or edema. NEUROLOGICAL: no focal neuro deficits. GCS 15. SKIN: Warm and dry, no erythema. no rash. Good capillary refill. (Jacqueline Hurtado) Constitutional: Initial Vital Signs Temperature (C) 36.8 C 11/06/17 16:07 Heart Rate 87 11/06/17 16:07 Respiratory Rate 18 11/06/17 16:07 Blood Pressure 153/97 H 11/06/17 16:07 O2 Sat (%) 97 11/06/17 16:07 O2 Delivery Mode Room Air Allergies/Adverse Reactions: carbamazepine Allergy (Verified 11/06/17 16:05) hydromorphone HCl [From Dilaudid] Allergy (Verified 11/06/17 16:05) morphine Allergy (Verified 11/06/17 16:05) Home Medications: Medication Instructions Recorded Levonorgestrel [MIRENA] 1 each VG [id number] 09/09/13 Hydroxychloroquine Sulfate 200 mg PO BID 10/17/16 [Plaquenil 200 mg (*)] Methotrexate Sodium [Rheumatrex] 15 mg PO TH 10/17/16 Cyanocobalamin [Vitamin B12 (*)] 1,000 mcg PO DAILY 11/30/16 Escitalopram Oxalate [Lexapro] 20 mg PO DAILY 11/30/16 Folic Acid [Folic Acid 1 MG (*)] 1 mg PO DAILY 11/30/16 Melatonin [Melatonin 3 MG (*)] 3 mg PO HS 11/30/16 Pramipexole Di-HCl [Mirapex 1 mg 2 mg PO BID 11/30/16 (*)] Quetiapine Fumarate [Seroquel Xr] 300 mg PO HS 11/30/16 Valacyclovir HCl 04/15/17 Lexapro 20 mg 09/01/17 [place] Carbonate 1,500 mg 09/01/17 Ativan 11/06/17 Belsomra 11/06/17 Benadryl 11/06/17 Wellbutrin 100mg (*) 11/06/17 Medical Decision Making - Diagnostics Imaging Results: Imaging Impressions Chest/Thorax CTA 11/06/17 14:19 Impression: 1. Bilateral subsegmental pulmonary artery thromboemboli, with the greatest degree of involvement of the right lower lobe. 2. There is a very small right pleural effusion with some right basilar groundglass attenuation infiltrate, which could represent a pneumonia, infarction, or a pulmonary contusion. Findings were discussed with LISA GOMEZ MD at 15:40, on 11/06/2017. ED Course/Re-evaluation: Vital signs stable upon arrival. No signs of hypoxia/respiratory distress. Eugenio score= 0; low risk for 30 day risk of PE related complications labs ordered any creatinine level to determine Lovenox dosage 1733: Reviewed labs. No signs of leukocytosis/anemia/[place]. Creatinine 0.9 with GFR greater than 60; Lovenox 90 mg ordered ED decision to consult for admission for bilateral pulmonary embolism, pulmonary infarction, factor 5 Leiden deficiency. Spoke with Dr. Duffy, who kindly agrees to admit patient and provide further care. Spoke with Hematology Oncology, Dr. Tolliver, who appreciated the call and will consult on the patient while in the hospital. This patient was seen under the supervision of my secondary supervising physician. I evaluated care for this patient independently. Discussed this patient with Dr. Khalil. (Jacqueline Hurtado) Differential Diagnosis: Shortness of breath including but not limited to pulmonary infectious process, COPD, asthma, pulmonary embolus and congestive heart failure. (Jacqueline Hurtado) Other Provider: PHYSICIAN DOCUMENTATION: The patient was evaluated and managed by the Physician Gang Mower Operator. My co- signature indicates that I have reviewed this chart and I agree with the findings and plan of care as documented. I am the secondary supervising physician. (Evert Khalil) - Data Points Laboratory Results: Laboratory Results 11/06/17 16:39 11/06/17 16:39 11/06/17 11/06/17 11/06/17 16:39 16:39 16:39 WBC 8.99 10^3/uL 10^3/uL (3.80-9.50) RBC 3.70 10^6/uL L 10^6/uL (4.18-5.33) Hgb 12.6 g/dL g/dL (12.6-16.3) Hct 37.3 % L % (38.0-47.0) MCV 100.8 fL H fL (81.5-99.8) MCH 34.1 pg pg (27.9-34.1) MCHC 33.8 g/dL g/dL (32.4-36.7) RDW 12.7 % % (11.5-15.2) Plt Count 226 10^3/uL 10^3/uL (150-400) MPV 9.7 fL fL (8.7-11.7) Neut % (Auto) 77.3 % H % (39.3-74.2) Lymph % (Auto) 14.0 % L % (15.0-45.0) Rooks % (Auto) 6.8 % % (4.5-13.0) Eos % (Auto) 1.3 % % (0.6-7.6) Baso % (Auto) 0.2 % L % (0.3-1.7) Nucleat RBC Rel Count 0.0 % % (0.0-0.2) Absolute Neuts (auto) 6.94 10^3/uL H 10^3/uL (1.70-6.50) Absolute Lymphs (auto) 1.26 10^3/uL 10^3/uL (1.00-3.00) Absolute Monos (auto) 0.61 10^3/uL 10^3/uL (0.30-0.80) Absolute Eos (auto) 0.12 10^3/uL 10^3/uL (0.03-0.40) Absolute Basos (auto) 0.02 10^3/uL 10^3/uL (0.02-0.10) Absolute Nucleated RBC 0.00 10^3/uL 10^3/uL (0-0.01) Immature Gran % 0.4 % % (0.0-1.1) Immature Gran # 0.04 10^3/uL 10^3/uL (0.00-0.10) PT 13.6 SEC SEC (12.0-15.0) INR 1.02 (0.83-1.16) APTT 29.8 SEC SEC (23.0-38.0) Sodium 138 mEq/L mEq/L (135-145) Potassium 4.3 mEq/L mEq/L (3.3-5.0) Chloride 101 mEq/L mEq/L (97-110) Carbon Dioxide 23 mEq/l mEq/l (22-31) Anion Gap 14 mEq/L mEq/L (8-16) BUN 11 mg/dL mg/dL (7-23) Creatinine 0.9 mg/dL mg/dL (0.6-1.0) Estimated GFR > 60 Glucose 85 mg/dL mg/dL (70-100) Calcium 9.1 mg/dL mg/dL (8.5-10.4) Troponin I < 0.012 ng/mL ng/mL (0.000-0.034) Departure - Departure Disposition: [facility] Inpatient Acute Clinical Impression: Bilateral pulmonary embolism, Factor V deficiency, Pulmonary embolism with infarction Condition: Fair
[2017-11-06 17:14] LABS: PLATELET COUNT 226 10^3/uL (150-400)
[2017-11-06] MEDS ORDERED: oxyCODONE IR 5 MG TAB PO PRN (17:15)
[2017-11-06] MEDS ORDERED: ACETAMINOPHEN 325 MG TAB PO PRN (17:15)
[2017-11-06] MEDS ORDERED: ONDANSETRON 4 MG/2 ML VIAL IVP PRN (17:15)
[2017-11-06] MEDS ORDERED: ONDANSETRON DISINTEGRATING 4 MG TAB PO PRN (17:15)
[2017-11-06] MEDS ORDERED: KETOROLAC 15 MG/1 ML SDV IVP PRN (17:18)
[2017-11-06 17:25] LABS: INR 1.02 (0.83-1.16); PROTIME(PATIENT) 13.6 SEC (12.0-15.0)
[2017-11-06] MEDS ORDERED: WARFARIN SODIUM 5 MG TAB PO SCH (17:30)
[2017-11-06] MEDS ORDERED: IBUPROFEN 200 MG TAB PO PRN (18:02)
[2017-11-06] MEDS: APIXABAN 5 MG TAB PO SCH ×2 (18:35→21:04)
--- NOTE | 2017-11-06 19:22 | PDGENHP ---
History and Physical - Chief Complaint Acute chest pain - History of Present Illness Primary care provider: Dr. Johnie Menjivar Primary kohinoor operator: Dr. Elver Jules Primary cryptologic supervisor: Dr. Jaziel Sotomayor Primary psychiatrist: Dr. Richardson HPI: 41-year-old female presenting with acute chest pain located in the right chest and migrating into the right shoulder, left lower chest, characterized as sharp pain with associated shortness of breath, onset of symptoms occurring at rest while the patient was in bed, temporarily alleviated with oral ibuprofen. Patient reports that the onset of symptoms were several days prior, and they occurred intermittently. She contacted her primary care provider office and they recommended CT angiogram today, which demonstrated bilateral pulmonary emboli. The patient notes that her symptoms have occurred in the context of increased immobility secondary to depression and low energy. She has experienced recent shortness of breath which is exacerbated by activity, and this symptom has been present prior to her onset of chest pain. She denies any recent lower extremity edema and denies any episodes of bleeding. She checked her oxygen saturation at home and it was between 94 and 98%. She does endorse that during this episode of depression her memory has been particularly poor and her assists with the history taking. History Information - Allergies/Home Medication List Allergies/Adverse Reactions: carbamazepine Allergy (Verified 11/06/17 16:05) hydromorphone HCl [From Dilaudid] Allergy (Verified 11/06/17 16:05) morphine Allergy (Verified 11/06/17 16:05) Home Medications: Levonorgestrel [MIRENA] 1 each VG [id number] 09/09/13 [Last Taken Unknown] Hydroxychloroquine Sulfate [Plaquenil 200 mg (*)] 200 mg PO BID 10/17/16 [Last Taken 11/30/16] Methotrexate Sodium [Rheumatrex] 15 mg PO TH 10/17/16 [Last Taken 11/24/16] Cyanocobalamin [Vitamin B12 (*)] 1,000 mcg PO DAILY 11/30/16 [Last Taken Unknown ] Escitalopram Oxalate [Lexapro] 20 mg PO DAILY 11/30/16 [Last Taken 11/30/16] Folic Acid [Folic Acid 1 MG (*)] 1 mg PO DAILY 11/30/16 [Last Taken 11/30/16] Melatonin [Melatonin 3 MG (*)] 3 mg PO HS 11/30/16 [Last Taken 11/29/16] Pramipexole Di-HCl [Mirapex 1 mg (*)] 2 mg PO BID 11/30/16 [Last Taken 11/30/16] Quetiapine Fumarate [Seroquel Xr] 300 mg PO HS 11/30/16 [Last Taken 11/29/16] Valacyclovir HCl 04/15/17 [Last Taken Unknown] Lexapro 20 mg 09/01/17 [Last Taken Unknown] [place] Carbonate 1,500 mg 09/01/17 [Last Taken Unknown] Ativan 11/06/17 [Last Taken Unknown] Belsomra 11/06/17 [Last Taken Unknown] Benadryl 11/06/17 [Last Taken Unknown] Wellbutrin 100mg (*) 11/06/17 [Last Taken Unknown] I have personally reviewed and updated: family history, medical history, social history, surgical history - Past Medical History Additional medical history: Factor 5 Leiden heterogeneity with provoked pulmonary embolism in 2010, was on Coumadin for 6 months. Bipolar disease with depressive type, currently very sedentary and depressed. PCOS. Undifferentiated connective tissue disorder - Surgical History Additional surgical history: Lumbar surgery for herniated disc at L4-L5 - Family History Additional family history: No family history of venous thromboembolism - Social History Smoking Status: Never smoked Alcohol Use: None Drug Use: None Additional social history: Independent in her ADLs, lives with Review of Systems Review of Systems: ROS: 10pt was reviewed & negative except for what was stated in HPI & below Cardiac: Reports: chest pain Respiratory: Reports: shortness of breath Neurological: Reports: depressed Physical Exam Physical Exam: Temp Pulse Resp BP Pulse Ox 37.2 C 80 16 149/79 H 96 11/06/17 18:10 11/06/17 18:10 11/06/17 18:10 11/06/17 18:10 11/06/17 18:10 Constitutional: no apparent distress, not in pain, obese, No uncomfortable Eyes: PERRL, anicteric sclera, EOMI Ears, Nose, Mouth, Throat: moist mucous membranes, hearing normal, ears appear normal, no oral mucosal ulcers Cardiovascular: regular rate and rhythym, no murmur, rub, or gallop, No edema Respiratory: no respiratory distress, no rales or rhonchi, clear to auscultation Gastrointestinal: normoactive bowel sounds, soft, non-tender abdomen, no palpable masses Skin: warm, No abrasion, No erythema, No rash Neurologic: AAOx3, sensation intact bilaterally, No weakness Psychiatric: not anxious, depressed, flat affect, poor memory, No agitated Lab Data & Imaging Review 11/06/17 16:39 11/06/17 16:39 WBC 8.99 10^3/uL (3.80-9.50) 11/06/17 16:39 RBC 3.70 10^6/uL (4.18-5.33) L 11/06/17 16:39 Hgb 12.6 g/dL (12.6-16.3) 11/06/17 16:39 Hct 37.3 % (38.0-47.0) L 11/06/17 16:39 MCV 100.8 fL (81.5-99.8) H 11/06/17 16:39 MCH 34.1 pg (27.9-34.1) 11/06/17 16:39 MCHC 33.8 g/dL (32.4-36.7) 11/06/17 16:39 RDW 12.7 % (11.5-15.2) 11/06/17 16:39 Plt Count 226 10^3/uL (150-400) 11/06/17 16:39 MPV 9.7 fL (8.7-11.7) 11/06/17 16:39 Neut % (Auto) 77.3 % (39.3-74.2) H 11/06/17 16:39 Lymph % (Auto) 14.0 % (15.0-45.0) L 11/06/17 16:39 [place] % (Auto) 6.8 % (4.5-13.0) 11/06/17 16:39 Eos % (Auto) 1.3 % (0.6-7.6) 11/06/17 16:39 Baso % (Auto) 0.2 % (0.3-1.7) L 11/06/17 16:39 Nucleat RBC Rel Count 0.0 % (0.0-0.2) 11/06/17 16:39 Absolute Neuts (auto) 6.94 10^3/uL (1.70-6.50) H 11/06/17 16:39 Absolute Lymphs (auto) 1.26 10^3/uL (1.00-3.00) 11/06/17 16:39 Absolute Monos (auto) 0.61 10^3/uL (0.30-0.80) 11/06/17 16:39 Absolute Eos (auto) 0.12 10^3/uL (0.03-0.40) 11/06/17 16:39 Absolute Basos (auto) 0.02 10^3/uL (0.02-0.10) 11/06/17 16:39 Absolute Nucleated RBC 0.00 10^3/uL (0-0.01) 11/06/17 16:39 Immature Gran % 0.4 % (0.0-1.1) 11/06/17 16:39 Immature Gran # 0.04 10^3/uL (0.00-0.10) 11/06/17 16:39 PT 13.6 SEC (12.0-15.0) 11/06/17 16:39 INR 1.02 (0.83-1.16) 11/06/17 16:39 APTT 29.8 SEC (23.0-38.0) 11/06/17 16:39 Sodium 138 mEq/L (135-145) 11/06/17 16:39 Potassium 4.3 mEq/L (3.3-5.0) 11/06/17 16:39 Chloride 101 mEq/L (97-110) 11/06/17 16:39 Carbon Dioxide 23 mEq/l (22-31) 11/06/17 16:39 Anion Gap 14 mEq/L (8-16) 11/06/17 16:39 BUN 11 mg/dL (7-23) 11/06/17 16:39 Creatinine 0.9 mg/dL (0.6-1.0) 11/06/17 16:39 Estimated GFR > 60 11/06/17 16:39 Glucose 85 mg/dL (70-100) 11/06/17 16:39 Calcium 9.1 mg/dL (8.5-10.4) 11/06/17 16:39 Troponin I < 0.012 ng/mL (0.000-0.034) 11/06/17 16:39 Visualized and Interpreted imaging results: Yes Interpretation: CT angiogram demonstrating bilateral subsegmental pulmonary emboli with right lower lobe effusion versus infarction Assessment & Plan Assessment: 41-year-old female presents with acute, recurrent bilateral pulmonary emboli and pulmonary infarction Plan: 1. Pulmonary emboli and pulmonary infarction. Acute, recurrent, new problem this provider, further workup indicated. Evidenced by subsegmental disease on CT angiogram with symptomatic chest pain and shortness of breath. She is currently not hypoxic or hemodynamically unstable. She requires observation overnight for treatment of chest pain and monitoring to ensure that her pulmonary infarction pain does not escalate. -check renal function to ensure she is able to take systemic anticoagulation safely -most likely etiology of recurrence is her particularly sedentary nature in the setting of depressive episode of bipolar disease with reduced energy, mostly bed -bound -given that the presence of deep venous thrombosis would not alter management, will not perform lower extremity ultrasounds at this time, as it will most likely be recommended that the patient be on lifelong systemic anticoagulation now that she has experienced recurrence of venous thromboembolism in the setting of factor 5 Leiden heterogeneity -will recommend obtaining outside records from Dr. Jules's office to confirm her diagnosis and determine whether there were any additional considerations made prior to discontinuing her blood thinners 7 years ago -the patient believes that DOAC treatment would be of particular value at this time given that she is currently not able to mobilize herself from her home secondary to her depression, and after fully discussing the risks and benefits of the 3 DOAC agents, the patient has chosen Eliquis -will initiate loading dose of 10 mg twice daily, and recommend the patient receive the Eliquis starter pack with commercial insurance card tomorrow a.m. Prior to discharge -treat her pain is supportively with as needed Tylenol, low-dose ibuprofen and Toradol, oxycodone, heat pad -recommend that she follow up with Dr. Elver Jules within 1 week 2. Bipolar disease, depressive type. Recommend that she continue to follow up with her mental health provider to optimize her medications, currently weaning some and introducing others Diet. Regular Prophylaxis. Eliquis 10 mg twice daily, starter pack Code. Full Disposition. Anticipated discharge is 11/07, pending stabilization of above. I have discussed patient's presentation with Jacqueline Hurtado, emergency department provider, we agree the patient warrants observation overnight to ensure that her chest pain symptoms do not escalate and there treated appropriately given her underlying pulmonary infarction.
[2017-11-06] MEDS ORDERED: LEVONORGESTREL VG SCH (22:30)
[2017-11-06] MEDS ORDERED: LORazepam 1 MG TAB PO SCH (23:00)
[2017-11-06] MEDS ORDERED: diphenhydrAMINE 25 MG CAP PO SCH (23:00)
[2017-11-06] MEDS ORDERED: NALTREXONE HCL 50 MG TAB PO PRN (23:00)
[2017-11-06] MEDS: LITHIUM CARBONATE ER 450 MG TAB PO SCH (23:14)
[2017-11-06] MEDS: LITHIUM CARBONATE ER 300 MG TAB PO SCH (23:14)
[2017-11-06] MEDS: PRAMIPEXOLE 0.25 MG TAB PO SCH (23:16)
[2017-11-06] MEDS: HYDROXYCHLOROQUINE SULFATE 200 MG TAB PO SCH (23:23)
[2017-11-06] MEDS ORDERED: MELATONIN 3 MG TAB PO SCH (23:30)
[2017-11-07] MEDS ORDERED: ENOXAPARIN 100 MG/ML SYR SC SCH (06:00)
[2017-11-07] MEDS ORDERED: ESCITALOPRAM OXALATE 10 MG TAB PO SCH (09:00)
[2017-11-07] MEDS ORDERED: VALACYCLOVIR HCL 1000 MG PO SCH (09:00)
[2017-11-07] MEDS ORDERED: buPROPion SR 100 MG TAB PO SCH (09:00)
[2017-11-07] MEDS ORDERED: FOLIC ACID 1 MG TAB PO SCH (09:00)
[2017-11-07] MEDS: APIXABAN 5 MG TAB PO SCH (09:03)
[2017-11-07] MEDS: HYDROXYCHLOROQUINE SULFATE 200 MG TAB PO SCH (09:05)
[2017-11-07] MEDS: LITHIUM CARBONATE ER 450 MG TAB PO SCH (09:05)
[2017-11-07] MEDS: PRAMIPEXOLE 0.25 MG TAB PO SCH (09:06)
[2017-11-07] MEDS: LITHIUM CARBONATE ER 300 MG TAB PO SCH (09:06)
--- NOTE | 2017-11-07 11:04 | HOSPPROG ---
Hospitalist Progress Note Assessment/Plan: Patient is a 41-year-old female who presented to the emergency room with chest pain on the right side and migrating to the right shoulder left lower chest. She had a CT angiogram which demonstrated bilateral pulmonary emboli. Today is my 1st encounter with the patient. Chart reviewed. * bilateral pulmonary emboli with pulmonary infarction -started on Eliquis -she has a history of factor 5 heterogeneity * bipolar disorder -has an appointment w her therapist *plan; dc home w close f/u with Dr Jules and Dr Menjivar Subjective: Annie is feeling much better today, has no complaints. Objective: Vital Signs Temp Pulse Resp BP Pulse Ox 36.8 C 73 16 124/74 H 95 11/07/17 07:52 11/07/17 07:52 11/07/17 07:52 11/07/17 07:52 11/07/17 07:52 11/06/17 11/07/17 11/08/17 05:59 05:59 05:59 Intake Total 200 Balance 200 PT 13.6 SEC (12.0-15.0) 11/06/17 16:39 INR 1.02 (0.83-1.16) 11/06/17 16:39 - Physical Exam Constitutional: no apparent distress, appears nourished, not in pain Eyes: PERRL Ears, Nose, Mouth, Throat: hearing normal Cardiovascular: regular rate and rhythym Respiratory: no respiratory distress Gastrointestinal: normoactive bowel sounds Skin: warm Musculoskeletal: full muscle strength Neurologic: AAOx3 Psychiatric: interacting appropriately, flat affect ICD10 Worksheet Patient Problems: Problems Problem Status Onset Bilateral pulmonary embolism Acute Factor V deficiency Acute Pulmonary embolism with infarction Acute Drowsy Active Contusion of rib on right side Acute Contusion of right arm Acute Low back pain Acute
[2017-11-07 11:45] VITALS: BP 146/80
--- NOTE | 2017-11-07 14:45 | GDS ---
[f rep st] DISCHARGE SUMMARY DISCHARGE DIAGNOSIS: 1. Bilateral pulmonary emboli with pulmonary infarct. 2. Bipolar disorder. BRIEF HISTORY: Briefly, the patient is a 41-year-old female who presented to the emergency room with chest pain on the right side and migrating to the right shoulder and left lower chest area. She had a CT angiogram which demonstrated bilateral pulmonary emboli. She was started on Eliquis and is fee ling much better. She will be discharged home on Eliquis and further followup with her primary care provider. HOSPITAL COURSE: 1. Bilateral pulmonary emboli. An ultrasound was not performed to rule out DVT because the treatmen t would be the same. The CTA showed bilateral subsegmental pulmonary artery thromboemboli with the g reatest degree of involvement of the right lower lobe. She has a small right pleural effusion with s ome right basilar ground-glass attenuation infiltrate which could represent a pneumonia infarction or a pulmonary contusion. She was started on Eliquis and getting the starter pack. She is feeling muc h better today and will be discharged home and further followup with Dr. Jules. 2. Bipolar disorder. She has an appointment with her psychiatrist today. Her is very suppo rtive and her focus is to get this better managed. DISCHARGE CONDITION: Stable. Blood pressure is 146/80, heart rate is 73, respiratory rate is 16, O2 saturations on room air 99%, temperature is 36.9 Celsius. MEDICATIONS AT DISCHARGE: Please see the EMR. DISCHARGE INSTRUCTIONS: 1. To follow up with Dr. Menjivar in approximately a month. 2. To follow up Dr. Jules in 2 weeks. 3. If she develops fever, chills, chest pain, shortness of breath, return to the ER. 4. I will also call Dr. Menjivar and let him know about the patient's admission and discharge. /[id number]/MODL
--- NOTE | 2017-11-07 17:15 | ASMTCMCOM ---
CM Note CM Note Notes: Pt medically stable for d/c with spouse support, psychiatrist appointment today and outpatient follow up with PCP. No CM d/c needs identified. Date Signed: 11/07/2017 03:59 PM Electronically Signed By:BURAK Lowe
[2017-11-10] MEDS ORDERED: METHOTREXATE 2.5 MG TAB PO SCH (22:52)
== END 2017-11-07 13:17 | disposition home or self-care (01) ==
LOC: EDSTATUS 18:00 → F3N 18:06
PROVIDERS: ADMIT Internal Medicine; ATTEND Internal Medicine
DX: I26.99 Other pulmonary embolism without acute cor pulmonale (principal); F31.9 Bipolar disorder, unspecified; D68.2 Hereditary deficiency of other clotting factors
CPT/HCPCS: 71275; G0378; Q9967

== ENCOUNTER → 2018-12-12 | Outpatient (CLI) | payer OTHER | LOC: FIMAGING 12:32 ==